=== PATIENT | female | born 1995 | race Caucasian/White ===

== ENCOUNTER 2017-07-11 16:05 | Emergency (ER) | payer OTHER ==
[~2017-07-11] VITALS: Ht 162.6 cm; Wt 82.7 kg
[2017-07-11 16:13] VITALS: TEMP 37; Ht 162.6 cm; Wt 82.7 kg
[2017-07-11] MEDS ORDERED: SODIUM CHLORIDE 0.9% 1000ML 1,000 ML IV STA ×2 (16:39→17:48)
[2017-07-11] MEDS ORDERED: ONDANSETRON INJ 2 MG/ML 2 ML VIAL IV STA (16:39)
[2017-07-11] MEDS ORDERED: FAMOTIDINE 20MG/102 ML D5W IV STA (16:39)
[2017-07-11 16:50] LABS: BASO % 0.1 %; BASO ABS # 0.02 K/uL (0-0.2); COMPLETE YES; EOS % 0.1 %; HEMATOCRIT 45.7 % (37-47); IG% 0.5 %; LYMPH % 13.7 %; LYMPH ABS # 2.21 K/uL (1.2-3.4); MEAN CELL VOLUME 80.7 fL (80-100); MEAN CORPUSCULAR HEMOGLOBIN 28.8 pg (25-34); MEAN CORPUSCULAR HGB CONC 35.7 g/dl (32-36); MONO % 11.6 %; PLATELET COUNT 451 K/uL (130-400); RED BLOOD COUNT 5.66 M/uL (4.2-5.4); WHITE BLOOD COUNT 16.16 K/uL (4.8-10.8)
--- NOTE | 2017-07-11 16:58 | EMERGENCY ROOM VISIT NOTE ---
History Report prepared by Marivel: Yelena Reyes Under the Supervision of: Dr. Rupert Hines M.D. First contact with patient: 16:28 Chief Complaint: VOMITING Stated Complaint: VOMITING SINCE SUNDAY History of Present Illness The patient is a 22 year old female who presents to the Emergency Room with complaints of persistent vomiting starting 3 days ago. The nausea and vomiting started in the morning 3 days ago. It woke her up from sleep. She had not eating anything out of the ordinary the day before. Since then she has been vomiting even without eating or drinking anything. Every time that she tries to eat or drink anything, she begins to feel nauseous and vomits within minutes. Two nights ago, she vomited some spots of blood. She went to see her PCP yesterday and was told that she probably has a virus and the blood in her vomit was probably just a popped blood vessel. She had a low grade fever in the office. She is scheduled to follow up next week. She has never experienced vomiting like this before. She has vomited 4-5 times today. She has some coughing when she vomits, but no coughing otherwise. She has had upper abdominal pain which is improved today. She notes that she has not had the urge to urinate over the past 3 days. She has not had any bowel movements. She is nauseous currently. She denies any back pain, chills, rhinorrhea, or congestion. She admits to occasional alcohol use, but none in the past week. She has a family history of GERD. Her last menstrual period started 2 days ago. She is on Kyleena IUD. She denies any chance of . She denies any history of gallstones. She does not have any medical problems or previous abdominal surgeries. Source of History: patient Onset: 3 days ago Position: other (global) Quality: other (vomiting) Timing: other (persistent) Modifying Factors (Worsening): eating Associated Symptoms: + fevers (low grade), + cough (with vomiting), + nausea , + abdominal pain (upper), No chills, No back pain Note: Pt reports blood in vomit, decreased urination, bowel movements. Pt denies rhinorrhea, congestion. Review of Systems See HPI for pertinent positives and negatives. A total of ten systems were reviewed and were otherwise negative. Past Medical & Surgical Medical Problems: (1) No significant medical problems Family History GERD Social History Smoking Status: Current Some Day Smoker Alcohol Use: occasionally Marital Status: in relationship Current/Historical Medications Scheduled Famotidine (Pepcid), 20 MG PO BID Omeprazole (Prilosec), 40 MG PO DAILY Ondasetron Odt (Zofran Odt), 4 MG SL Q6H Miscellaneous Medications Bismuth Subsalicylate (Pepto-Bismol), Unknown Dose Levonorgestrel (Iud) (Kyleena), Unknown Dose Allergies Coded Allergies: No Known Allergies (Unverified , 07/11/17) Physical Exam Vital Signs Date Time Temp Pulse Resp B/P (MAP) Pulse Ox O2 Delivery O2 Flow Rate FiO2 07/11/17 20:57 62 12 124/75 97 07/11/17 20:02 64 16 126/72 96 Room Air 07/11/17 18:00 72 18 121/86 97 07/11/17 16:13 37.0 102 18 129/91 97 Room Air Physical Exam GENERAL: Awake, alert, in no distress HENT: Normocephalic, atraumatic. Oropharynx unremarkable. Dry mucous membranes. EYES: Normal conjunctiva. Sclera non-icteric. NECK: Supple. No nuchal rigidity. FROM. No JVD. RESPIRATORY: Clear to auscultation. CARDIAC: Regular rate, normal rhythm. Extremities warm and well perfused. Pulses equal. ABDOMEN: Soft, non-distended. Mild tenderness to palpation in the epigastric region and RUQ. No rebound or guarding. No masses. No Mallory's sign. No peritoneal signs. Bedside ultrasound shows no pericholecystic fluid, no gallstones, CBD within normal limits. RECTAL: Deferred. MUSCULOSKELETAL: Chest examination reveals no tenderness. The back is symmetrical on inspection without obvious abnormality. There is no CVA tenderness to palpation. No joint edema. LOWER EXTREMITIES: Calves are equal size bilaterally and non-tender. No edema. No discoloration. NEURO: Normal sensorium. No sensory or motor deficits noted. SKIN: No rash or jaundice noted. Medical Decision & Procedures Laboratory Results 07/11/17 16:35 Red Blood Count 5.66, Mean Corpuscular Volume 80.7, Mean Corpuscular Hemoglobin 28.8, Mean Corpuscular Hemoglobin Concent 35.7, Mean Platelet Volume 9.0, Neutrophils (%) (Auto) 74.0, Lymphocytes (%) (Auto) 13.7, Monocytes (%) (Auto) 11.6, Eosinophils (%) (Auto) 0.1, Basophils (%) (Auto) 0.1, Neutrophils # (Auto ) 11.95, Lymphocytes # (Auto) 2.21, Monocytes # (Auto) 1.88, Eosinophils # (Auto ) 0.02, Basophils # (Auto) 0.02 07/11/17 16:35 Test 07/11/17 16:35 White Blood Count 16.16 K/uL (4.8-10.8) Red Blood Count 5.66 M/uL (4.2-5.4) Hemoglobin 16.3 g/dL (12.0-16.0) Hematocrit 45.7 % (37-47) Mean Corpuscular Volume 80.7 fL (80-100) Mean Corpuscular Hemoglobin 28.8 pg (25-34) Mean Corpuscular Hemoglobin Concent 35.7 g/dl (32-36) Platelet Count 451 K/uL (130-400) Mean Platelet Volume 9.0 fL (7.4-10.4) Neutrophils (%) (Auto) 74.0 % Lymphocytes (%) (Auto) 13.7 % Monocytes (%) (Auto) 11.6 % Eosinophils (%) (Auto) 0.1 % Basophils (%) (Auto) 0.1 % Neutrophils # (Auto) 11.95 K/uL (1.4-6.5) Lymphocytes # (Auto) 2.21 K/uL (1.2-3.4) Monocytes # (Auto) 1.88 K/uL (0.11-0.59) Eosinophils # (Auto) 0.02 K/uL (0-0.5) Basophils # (Auto) 0.02 K/uL (0-0.2) RDW Standard Deviation 37.3 fL (36.4-46.3) RDW Coefficient of Variation 12.7 % (11.5-14.5) Immature Granulocyte % (Auto) 0.5 % Immature Granulocyte # (Auto) 0.08 K/uL (0.00-0.02) Urine Color DK YELLOW Urine Appearance CLOUDY (CLEAR) Urine pH 5.5 (4.5-7.5) Urine Specific [place] 1.028 (1.000-1.030) Urine Protein 1+ (NEG) Urine Glucose (UA) NEG (NEG) Urine Ketones 3+ (NEG) Urine Occult Blood 2+ (NEG) Urine Nitrite NEG (NEG) Urine Bilirubin NEG (NEG) Urine Urobilinogen NEG (NEG) Urine Leukocyte Esterase TRACE (NEG) Urine WBC (Auto) 10-30 /hpf (0-5) Urine RBC (Auto) 0-4 /hpf (0-4) Urine Hyaline Casts (Auto) 10-30 /lpf (0-5) Urine Epithelial Cells (Auto) >30 /lpf (0-5) Urine Bacteria (Auto) 1+ (NEG) Urine Test NEG (NEG) Anion Gap 14.0 mmol/L (3-11) Est Creatinine Clear Calc Drug Dose 91.8 ml/min Estimated GFR () 92.6 Estimated GFR (Non- 79.9 BUN/Creatinine Ratio 15.5 (10-20) Calcium Level 9.7 mg/dl (8.5-10.1) Total Bilirubin 1.0 mg/dl (0.2-1) Direct Bilirubin 0.2 mg/dl (0-0.2) Aspartate Amino Transf (AST/SGOT) 20 U/L (15-37) Alanine Aminotransferase (ALT/SGPT) 23 U/L (12-78) Alkaline Phosphatase 97 U/L (45-117) Total Protein 8.9 gm/dl (6.4-8.2) Albumin 4.7 gm/dl (3.4-5.0) Lipase 124 U/L (73-393) Date/Time Source Procedure Growth Status 07/11/17 16:35 Urine , Clean Catch Urine Culture - Final MORE THAN THREE TYPES OF ORGANISMS MN... Complete Laboratory results reviewed by me Medications Administered Medications (Trade) Dose Ordered Sig/Suki Route Start Time Stop Time Status Last Admin Dose Admin Ondansetron HCl (Zofran Inj) 4 mg NOW STAT IV 07/11/17 16:39 07/11/17 16:45 DC 07/11/17 17:09 4 MG Sodium Chloride 1,000 ml @ 999 mls/hr Q1H1M STAT IV 07/11/17 16:39 07/11/17 17:39 DC 07/11/17 17:09 999 MLS/HR Famotidine (Pepcid 20mg/100 ml) 20 mg ONE STAT IV 07/11/17 16:39 07/11/17 16:45 DC 07/11/17 17:09 20 MG Sodium Chloride 1,000 ml @ 999 mls/hr Q1H1M STAT IV 07/11/17 17:48 07/11/17 18:48 DC 07/11/17 18:00 999 MLS/HR Miscellaneous Medication (Gi Cocktail) 24 ml NOW STAT PO 07/11/17 17:48 07/11/17 17:49 DC 07/11/17 17:58 24 ML Potassium Chloride (Klor-Con M10) 40 meq NOW STAT PO 07/11/17 20:38 07/11/17 20:39 DC 07/11/17 20:49 40 MEQ ED Course 8: The patient was evaluated in room C12B. A complete history and physical exam was performed. 1638: Famotidine 20 mg IV, NSS 1000 ml @ 999 mls/hr IV, Zofran Inj 4 mg IV. 1747: Gi Cocktail 24 ml PO, NSS 1000 ml @ 999 mls/hr IV. 1928: I reevaluated the patient. She is feeling better. She will try eating some crackers. 2031: I reevaluated the patient. She has tolerated PO and is feeling better. I discussed the results with her. She verbalized agreement of the treatment plan. She was discharged home. 2037: Potassium Chloride 40 meq PO. Medical Decision I reviewed the patient's past medical history, medications, and the nursing notes as described above. Differential diagnosis: gastritis, peptic ulcer, biliary etiology, gastroenteritis. Patient is a 22-year-old woman who presents to emergency department with upper abdominal pain with nausea and vomiting per history of present illness. The patient is uncomfortable in no acute distress, afebrile with stable vital signs. Exam the patient has mild epigastric tenderness to palpation but negative Mallory sign. Bedside ultrasound of the right upper quadrant was negative for gallstones, without pericholecystic fluid, and CBD within normal limits. Labs elevated WBC of 16 which is nonspecific and mildly elevated anion gap which is likely due to the patient's dehydration from vomiting. However given the patient is nontoxic appearing and hemodynamically stable emergent process not likely. Otherwise labs unremarkable. I discussed with patient options for continued supportive care versus CT scan however given the patient' s improvement the patient preferred supportive care at this time. Symptoms most likely gastritis. Strict return instructions were given. Findings and plan for follow-up reviewed with patient. Patient agreeable and d/c'd per discharge instructions. Medication Reconcilliation Current Medication List: was personally reviewed by me Blood Pressure Screening Patient's blood pressure: Normal blood pressure Blood pressure disposition: Did not require urgent referral Impression Primary Impression: Vomiting Additional Impression: Acute gastritis Scribe Attestation The scribe's documentation has been prepared under my direction and personally reviewed by me in its entirety. I confirm that the note above accurately reflects all work, treatment, procedures, and medical decision making performed by me. Departure Information Dispostion Home / Self-Care Prescriptions Omeprazole (PRILOSEC) 40 Mg Cap 40 MG PO DAILY for 10 Days, #10 CAP Prov: Rupert Hines M.D. 07/11/17 Ondasetron Odt (ZOFRAN ODT) 4 Mg Tab 4 MG SL Q6H for Nausea, #6 TAB Prov: Rupert Hines M.D. 07/11/17 Famotidine (PEPCID) 20 Mg Tab 20 MG PO BID for 10 Days, #20 TAB Prov: Rupert Hines M.D. 07/11/17 Referrals No Doctor, Assigned (PCP) Patient Instructions ED Diet Brat Expanded Ch, ED Nausea Vomiting, ED PUD Vs Gastritis, My [facility] Additional Instructions Please follow up with your primary care physician in the next 1-3 days for re- evaluation. You likely have a gastritis. Otherwise, your exam, ultrasound, and lab results did not show signs of an emergent condition at this time. Zofran for nausea as needed. Pepcid and omeprazole for acid reduction and symptom relief. BRAT diet. Ensure hydration. Return to the emergency department for worsening symptoms as described in the accompanying instructions. Problem Qualifiers
[2017-07-11 17:08] LABS: BUN/CREATININE RATIO 15.5 (10-20); CALCIUM 9.7 mg/dl (8.5-10.1); POTASSIUM 2.8 mmol/L (3.5-5.1)
[2017-07-11 17:11] LABS: URINE APPEARANCE CLOUDY (CLEAR); URINE COLOR DK YELLOW; URINE EPITHELIAL CELL AUTO >30 /lpf (0-5); URINE NITRITE NEG (NEG); URINE PH 5.5 (4.5-7.5); URINE SPECIFIC GRAVITY 1.028 (1.000-1.030); UROBILINOGEN NEG (NEG); ZZUR CULT IF INDIC CLEAN CATCH YES
[2017-07-11] MEDS ORDERED: LEVO19.5 (17:16)
[2017-07-11] MEDS ORDERED: BISM262S7 (17:16)
[2017-07-11 17:35] LABS: MANUAL MICROSCOPIC REQUIRED? NO; REVIEW REQ? YES; URINE BILIRUBIN NEG (NEG)
[2017-07-11] MEDS ORDERED: GI COCKTAIL PO STA (17:48)
[2017-07-11] MEDS ORDERED: ALUMINUM/MAGNESIUM SUSP 30 ML UDC ONE (17:56)
[2017-07-11] MEDS ORDERED: LIDOCAINE HCL 2% VISC SOLN 20 ML UDC ONE (17:56)
[2017-07-11] MEDS ORDERED: OMEP40CA41 PO (20:34)
[2017-07-11] MEDS ORDERED: ONDA4TAB10 SL (20:34)
[2017-07-11] MEDS ORDERED: FAMO20TA9 PO (20:34)
[2017-07-11] MEDS ORDERED: POTASSIUM CHLORIDE 10 MEQ TABCR PO STA (20:38)
[2017-07-11 20:57] VITALS: BP 124/75; PULSE 62; O2SAT 97
== END 2017-07-11 20:58 | disposition home or self-care (01) ==
LOC: C.EDB 16:08 → C.EDC 20:58
DX: R11.10 Vomiting, unspecified (principal); K29.00 Acute gastritis without bleeding; Z83.79 Family history of other diseases of the digestive system; F17.210 Nicotine dependence, cigarettes, uncomplicated

== ENCOUNTER → 2017-07-16 | Outpatient (CLI) | payer OTHER ==
[~2017-07-16] MED LIST: BISM262S7; FAMO20TA9 PO; LEVO19.5; OMEP40CA41 PO; ONDA4TAB10 SL
== END | disposition home or self-care (01) ==
LOC: C.LAB1850 08:24
PROVIDERS: ATTEND Nurse Practitioner Family
DX: R10.9 Unspecified abdominal pain (principal); R11.10 Vomiting, unspecified